=== PATIENT | female | born 1970 | race African-American/Black ===

== ENCOUNTER 2023-01-24 10:12 | Inpatient (IN) | payer OTHER ==
[~2023-01-24] VITALS: Ht 167.6 cm; Wt 62.8 kg
[2023-01-24] VITALS (21 sets, daily range): BP systolic 85–148; BP diastolic 51–120; PULSE 76–121; RESP 3–40; TEMP 98.4–98.5; O2SAT 90–100
[2023-01-24] MEDS ORDERED: SODIUM CHLORIDE 0.9% 1000ML 1,000 ML IV STA (10:37)
[2023-01-24] MEDS ORDERED: METHYLPREDNISOLONE SOD SUCC 125 MG/2ML VIAL IV STA (10:37)
[2023-01-24] MEDS ORDERED: ALBUTEROL/IPRATROPIUM 3 ML NEB NEB ONE (10:45)
[2023-01-24 12:19] LABS: BASOPHILS % 0.4 % (0.0-1.0); EOSINOPHILS # (AUTO) 0.2 (0.0-0.4); HEMATOCRIT 27.3 % (34.2-44.1); HEMOGLOBIN 8.3 g/dL (12.0-16.0); LYMPHOCYTES # (AUTO) 0.8 (1.0-3.2); LYMPHOCYTES % 10.2 % (18.0-39.1); MEAN CORPUSCULAR HEMOGLOBIN 29.3 pg (28-32); MEAN CORPUSCULAR HGB CONC 30.4 g/dL (31-35); MEAN CORPUSCULAR VOLUME 96.5 fL (81-99); MONOCYTES # (AUTO) 0.6 (0.2-0.8); NEUTROPHILS # (AUTO) 6.5 (2.1-6.9); PLATELET COUNT 194 x10e3/uL (140-360); RED BLOOD COUNT 2.83 x10e6/uL (3.6-5.1); RED CELL DISTRIBUTION WIDTH 16.9 % (11.7-14.4)
[2023-01-24 12:28] LABS: INR 1.98; PARTIAL THROMBOPLASTIN TIME 44.6 seconds (23.8-35.5)
[2023-01-24 12:38] LABS: ALBUMIN/GLOBULIN RATIO 0.6 (0.8-2.0); ANION GAP 11.8 mmol/L (8-16); CALCIUM 8.6 mg/dL (8.4-10.2); CREATININE, SERUM 1.07 mg/dL (0.57-1.11); MAGNESIUM 1.6 MG/DL (1.3-2.1); POTASSIUM 4.8 mmol/L (3.5-5.1)
[2023-01-24] MEDS ORDERED: FUROSEMIDE INJ 10 MG/ML 4 ML VIAL IV STA (12:42)
[2023-01-24] MEDS ORDERED: ACETAMINOPHEN 325 MG TAB PO PRN (13:00)
[2023-01-24] MEDS ORDERED: ONDANSETRON HCL INJ 2MG/ML 2ML 2 MG/ML VIAL IV PRN (13:00)
[2023-01-24] MEDS ORDERED: HYDRALAZINE HCL 20 MG/ML VIAL IV PRN (13:00)
[2023-01-24] MEDS ORDERED: ONDANSETRON HCL INJ 2MG/ML 2ML 2 MG/ML VIAL ONE (13:29)
[2023-01-24] MEDS ORDERED: LABETALOL HCL 5 MG/ML 20ML VIAL IV PRN (13:45)
[2023-01-24 13:48] LABS: CLARITY,URINE CLEAR (CLEAR); COLOR,URINE YELLOW (YELLOW)
[2023-01-24 13:49] LABS: KETONES,URINE NEGATIVE (NEGATIVE); LEUKOCYTE ESTERASE ,URINE NEGATIVE (NEGATIVE); NITRITE,URINE NEGATIVE (NEGATIVE); PROTEIN,URINE DIPSTICK 1+ (NEGATIVE); URINE UROBILINOGEN 0.2 mg/dL (0.2 - 1)
[2023-01-24 13:51] LABS: AMPHETAMINES SCREEN,URINE NEGATIVE (NEGATIVE); BENZODIAZEPINES SCREEN,URINE NEGATIVE (NEGATIVE); PHENCYCLIDINE SCREEN,URINE NEGATIVE (NEGATIVE)
[2023-01-24 13:55] LABS: BACTERIA,URINE FEW /HPF; EPITHELIAL CELLS,URINE FEW /LPF; RBC,URINE 0-5 /HPF (0-5); WBC,URINE (MAN) 0-5 /HPF (0-5)
[2023-01-24] MEDS ORDERED: ZOLOFT50 MG PO (15:17)
[2023-01-24] MEDS ORDERED: COREG6.25 MG PO (15:17)
[2023-01-24] MEDS ORDERED: LIPITOR20 MG PO (15:17)
[2023-01-24] MEDS ORDERED: LOSARTAN POTAS100 MG PO (15:17)
[2023-01-24] MEDS ORDERED: COMBIVENT RESPIM4 GM IH (15:17)
[2023-01-24] MEDS ORDERED: ASPIRIN81 MG PO (15:17)
[2023-01-24] MEDS ORDERED: XARELTO20 MG PO (15:17)
[2023-01-24] MEDS ORDERED: MULTI-VITAMIN1 EACH PO (15:17)
[2023-01-24] MEDS ORDERED: FUROSEMIDE INJ 10 MG/ML 4 ML VIAL IV ONE (19:00)
[2023-01-25] VITALS (30 sets, daily range): BP systolic 115–151; BP diastolic 20–97; PULSE 77–98; RESP 18–33; TEMP 97.8–98.8; O2SAT 94–100
[2023-01-25 07:06] LABS: BASOPHILS % 0.1 % (0.0-1.0); EOSINOPHILS % 0.1 % (0.0-6.0); HEMATOCRIT 25.9 % (34.2-44.1); HEMOGLOBIN 8.1 g/dL (12.0-16.0); LYMPHOCYTES # (AUTO) 0.9 (1.0-3.2); LYMPHOCYTES % 12.2 % (18.0-39.1); MEAN CORPUSCULAR HEMOGLOBIN 29.9 pg (28-32); MEAN CORPUSCULAR HGB CONC 31.3 g/dL (31-35); MEAN CORPUSCULAR VOLUME 95.6 fL (81-99); MONOCYTES # (AUTO) 0.7 (0.2-0.8); MONOCYTES % 10.1 % (4.4-11.3); NEUTROPHILS # (AUTO) 5.7 (2.1-6.9); NEUTROPHILS % 77.2 % (38.7-80.0); PLATELET COUNT 180 x10e3/uL (140-360); RED BLOOD COUNT 2.71 x10e6/uL (3.6-5.1); RED CELL DISTRIBUTION WIDTH 16.8 % (11.7-14.4)
[2023-01-25 07:22] LABS: ALBUMIN 2.6 g/dL (3.5-5.0); ALBUMIN/GLOBULIN RATIO 0.5 (0.8-2.0); ANION GAP 11.7 mmol/L (8-16); CALCIUM 8.4 mg/dL (8.4-10.2); CREATININE, SERUM 1.33 mg/dL (0.57-1.11); POTASSIUM 4.7 mmol/L (3.5-5.1)
[2023-01-25] MEDS ORDERED: ALBUMIN 25% 25GM 100ML 0.25 GM/ML BTL IV ONE (08:30)
[2023-01-25] MEDS ORDERED: FUROSEMIDE INJ 10 MG/ML 4 ML VIAL IV SCH ×2 (09:00→14:00)
[2023-01-25] MEDS: VALSARTAN 160 MG TAB PO SCH (09:40)
[2023-01-25 09:45] LABS: ABG HCO3 25 mmol/L (22-26); ABG PCO2 48 mmHg (35-45); ABG PH 7.33 (7.35-7.45); ABG PO2 161 mmHg (80-105); ABG TCO2 27
[2023-01-25] MEDS ORDERED: SODIUM CHLORIDE 0.9% 250ML 250 ML ONE (10:12)
[2023-01-25] MEDS: FUROSEMIDE INJ 100 MG in SODIUM CHLORIDE 0.9% 90 ML IV SCH ×2 (10:58→23:23)
[2023-01-25] MEDS ORDERED: VALSARTAN 160 MG TAB PO SCH (13:15)
[2023-01-25] MEDS: LORATADINE 10 MG TAB PO SCH (15:16)
[2023-01-25] MEDS: BENZONATATE 100 MG CAP PO PRN ×2 (16:34→22:03)
[2023-01-25] MEDS: MUPIROCIN 2% OINT 22 GM TUBE TOP SCH (21:00)
[2023-01-26] VITALS (33 sets, daily range): BP systolic 102–153; BP diastolic 61–125; PULSE 88–159; RESP 19–29; TEMP 97.7–98.8; O2SAT 89–100
[2023-01-26] MEDS: ZOLPIDEM TARTRATE 5 MG TAB PO PRN (00:16)
[2023-01-26 06:53] LABS: BASOPHILS % 0.7 % (0.0-1.0); EOSINOPHILS # (AUTO) 0.1 (0.0-0.4); EOSINOPHILS % 2.2 % (0.0-6.0); HEMATOCRIT 24.8 % (34.2-44.1); HEMOGLOBIN 7.7 g/dL (12.0-16.0); LYMPHOCYTES # (AUTO) 0.8 (1.0-3.2); LYMPHOCYTES % 13.5 % (18.0-39.1); MEAN CORPUSCULAR HEMOGLOBIN 29.4 pg (28-32); MEAN CORPUSCULAR VOLUME 94.7 fL (81-99); MONOCYTES # (AUTO) 0.4 (0.2-0.8); MONOCYTES % 6.9 % (4.4-11.3); NEUTROPHILS # (AUTO) 4.5 (2.1-6.9); NEUTROPHILS % 76.4 % (38.7-80.0); PLATELET COUNT 179 x10e3/uL (140-360); RED BLOOD COUNT 2.62 x10e6/uL (3.6-5.1); RED CELL DISTRIBUTION WIDTH 16.9 % (11.7-14.4)
[2023-01-26 07:22] LABS: ALBUMIN 2.8 g/dL (3.5-5.0); ALBUMIN/GLOBULIN RATIO 0.6 (0.8-2.0); ANION GAP 12.2 mmol/L (8-16); CALCIUM 8.3 mg/dL (8.4-10.2); CREATININE, SERUM 1.4 mg/dL (0.57-1.11); POTASSIUM 4.2 mmol/L (3.5-5.1)
[2023-01-26 07:44] LABS: % IRON SATURATION 10 % (15-50); IRON 31 ug/dL (50-170); TOTAL IRON BINDING CAPACITY 318 ug/dL (261-478); TRANSFERRIN 227 mg/dL (180-382)
[2023-01-26] MEDS: LORATADINE 10 MG TAB PO SCH (08:34)
[2023-01-26] MEDS: VALSARTAN 160 MG TAB PO SCH (08:35)
[2023-01-26] MEDS: MUPIROCIN 2% OINT 22 GM TUBE TOP SCH ×2 (08:48→20:29)
[2023-01-26] MEDS: SERTRALINE HCL 50 MG TAB PO SCH (14:32)
[2023-01-26] MEDS: BENZONATATE 100 MG CAP PO PRN (17:29)
[2023-01-26] MEDS: FUROSEMIDE INJ 10 MG/ML 4 ML VIAL IV SCH (20:29)
[2023-01-26] MEDS ORDERED: METOPROLOL TARTRATE INJ 1 MG/ML VIAL IV ONE (21:45)
[2023-01-26] MEDS ORDERED: AMIODARONE 900MG 900 MG in Premix Bag 1 BAG IV SCH (22:00)
[2023-01-26] MEDS ORDERED: AMIODARONE HCL 150 MG/100 ML BAG IV ONE (22:00)
[2023-01-26] MEDS ORDERED: AMIODARONE 900MG 500 ML IV ONE (22:33)
[2023-01-27] VITALS (40 sets, daily range): BP systolic 94–145; BP diastolic 58–133; PULSE 74–151; RESP 16–30; TEMP 97.3–98.6; O2SAT 93–100
[2023-01-27] MEDS: ZOLPIDEM TARTRATE 5 MG TAB PO PRN ×2 (00:11→20:44)
[2023-01-27] MEDS: BENZONATATE 100 MG CAP PO PRN ×3 (02:58→14:39)
[2023-01-27 06:47] LABS: BASOPHILS % 0.5 % (0.0-1.0); EOSINOPHILS # (AUTO) 0.2 (0.0-0.4); EOSINOPHILS % 3.7 % (0.0-6.0); HEMATOCRIT 26.9 % (34.2-44.1); HEMOGLOBIN 8.3 g/dL (12.0-16.0); LYMPHOCYTES # (AUTO) 1.3 (1.0-3.2); LYMPHOCYTES % 21.4 % (18.0-39.1); MEAN CORPUSCULAR HGB CONC 30.9 g/dL (31-35); MEAN CORPUSCULAR VOLUME 94.1 fL (81-99); MONOCYTES # (AUTO) 0.5 (0.2-0.8); NEUTROPHILS % 66.1 % (38.7-80.0); PLATELET COUNT 188 x10e3/uL (140-360); RED BLOOD COUNT 2.86 x10e6/uL (3.6-5.1); RED CELL DISTRIBUTION WIDTH 16.7 % (11.7-14.4)
[2023-01-27 07:12] LABS: ALBUMIN 2.7 g/dL (3.5-5.0); ALBUMIN/GLOBULIN RATIO 0.6 (0.8-2.0); ANION GAP 11.3 mmol/L (8-16); CALCIUM 8.5 mg/dL (8.4-10.2); CREATININE, SERUM 1.39 mg/dL (0.57-1.11); POTASSIUM 4.3 mmol/L (3.5-5.1)
[2023-01-27] MEDS: SERTRALINE HCL 50 MG TAB PO SCH (08:37)
[2023-01-27] MEDS: VALSARTAN 160 MG TAB PO SCH (08:38)
[2023-01-27] MEDS: FUROSEMIDE INJ 10 MG/ML 4 ML VIAL IV SCH (08:38)
[2023-01-27] MEDS: MUPIROCIN 2% OINT 22 GM TUBE TOP SCH ×2 (08:38→20:45)
[2023-01-27] MEDS: LORATADINE 10 MG TAB PO SCH (08:38)
[2023-01-27] MEDS: AMIODARONE HCL 200 MG TAB PO SCH ×2 (12:52→16:30)
[2023-01-27] MEDS ORDERED: MAGNESIUM SULFATE 2GM/50ML 50 ML IV ONE (16:00)
[2023-01-27] MEDS: FUROSEMIDE 40 MG TAB PO SCH (17:02)
[2023-01-28] VITALS (9 sets, daily range): BP systolic 118–144; BP diastolic 69–90; PULSE 74–91; RESP 18–20; TEMP 97.5–98; O2SAT 99–100
[2023-01-28] MEDS: FUROSEMIDE 40 MG TAB PO SCH (05:06)
[2023-01-28 06:00] LABS: BASOPHILS % 0.3 % (0.0-1.0); EOSINOPHILS # (AUTO) 0.2 (0.0-0.4); EOSINOPHILS % 2.6 % (0.0-6.0); HEMATOCRIT 29.1 % (34.2-44.1); HEMOGLOBIN 8.9 g/dL (12.0-16.0); LYMPHOCYTES # (AUTO) 1.4 (1.0-3.2); LYMPHOCYTES % 24.7 % (18.0-39.1); MEAN CORPUSCULAR HEMOGLOBIN 29.4 pg (28-32); MEAN CORPUSCULAR HGB CONC 30.6 g/dL (31-35); MONOCYTES # (AUTO) 0.3 (0.2-0.8); MONOCYTES % 5.6 % (4.4-11.3); NEUTROPHILS # (AUTO) 3.8 (2.1-6.9); NEUTROPHILS % 66.5 % (38.7-80.0); PLATELET COUNT 176 x10e3/uL (140-360); RED BLOOD COUNT 3.03 x10e6/uL (3.6-5.1); RED CELL DISTRIBUTION WIDTH 16.4 % (11.7-14.4)
[2023-01-28 06:18] LABS: ALBUMIN 2.9 g/dL (3.5-5.0); ALBUMIN/GLOBULIN RATIO 0.6 (0.8-2.0); ANION GAP 10.1 mmol/L (8-16); CALCIUM 8.5 mg/dL (8.4-10.2); CREATININE, SERUM 1.17 mg/dL (0.57-1.11); POTASSIUM 4.1 mmol/L (3.5-5.1)
[2023-01-28] MEDS ORDERED: SODIUM CHLORIDE 0.9% 250ML 250 ML ONE (08:53)
[2023-01-28] MEDS: MUPIROCIN 2% OINT 22 GM TUBE TOP SCH (08:55)
[2023-01-28] MEDS: LORATADINE 10 MG TAB PO SCH (08:55)
[2023-01-28] MEDS: VALSARTAN 160 MG TAB PO SCH (08:55)
[2023-01-28] MEDS: AMIODARONE HCL 200 MG TAB PO SCH (08:55)
[2023-01-28] MEDS: SERTRALINE HCL 50 MG TAB PO SCH (08:55)
[2023-01-28] MEDS ORDERED: AZITHROMYCIN 250 MG TAB PO SCH (09:00)
[2023-01-28] MEDS ORDERED: ONDANSETRON HCL 4 MG ORAL DISINTEGRATING TAB PO PRN (09:15)
[2023-01-28] MEDS ORDERED: MUPIROCIN22 GM TOP (10:17)
[2023-01-28] MEDS ORDERED: AMIODARONE HCL200 MG PO (10:17)
[2023-01-28] MEDS ORDERED: AZITHROMYCIN250 MG PO (10:17)
[2023-01-28] MEDS ORDERED: FUROSEMIDE40 MG PO (10:17)
[2023-01-28] MEDS ORDERED: BENZONATATE100 MG PO (10:17)
[2023-01-28] MEDS ORDERED: DIOVAN160 MG PO (10:17)
[2023-01-28] MEDS ORDERED: CEFUROXIME250 MG PO (10:17)
[2023-01-28] MEDS ORDERED: ACETAMINOPHEN325 M1 PO (10:17)
[2023-01-28] MEDS ORDERED: LORATADINE10 MG PO (10:17)
[2023-01-28] MEDS ORDERED: ONDANSETRON ODT4 MG PO (10:17)
== END 2023-01-28 15:33 | disposition home or self-care (01) | DRG 291 ==
LOC: ER 10:20 → ERHOLD 12:26 → ICU 15:03 → MED/SURG 01-27 18:44
PROVIDERS: ADMIT Internal Medicine; ATTEND Internal Medicine
PROC: 5A09457 Assistance with Respiratory Ventilation, 24-96 Consecutive Hours, Continuous Positive Airway Pressure (ICD-10-PCS; principal; 2023-01-24)
DX: I13.0 Hypertensive heart and chronic kidney disease with heart failure and stage 1 through stage 4 chronic kidney disease, or unspecified chronic kidney disease (principal); I50.23 Acute on chronic systolic (congestive) heart failure; J96.01 Acute respiratory failure with hypoxia; N18.2 Chronic kidney disease, stage 2 (mild); I48.0 Paroxysmal atrial fibrillation; Z72.0 Tobacco use; F14.11 Cocaine abuse, in remission; J44.9 Chronic obstructive pulmonary disease, unspecified; M54.9 Dorsalgia, unspecified; I42.7 Cardiomyopathy due to drug and external agent; R00.0 Tachycardia, unspecified; D50.9 Iron deficiency anemia, unspecified; F79 Unspecified intellectual disabilities
CPT/HCPCS: 36415; 36569; 36600; 71045; 80053; 80307; 81001; 82270; 82550; 82553; 82805; 83540; 83605; 83735; 83880; 84466; 84484; 85025; 85379; 85610; 85730; 87040; 87086; 93005; 93306; 94660; 94799; 99252; 99285; J0696; J1940; J2405; J2930; J3475; J7050; P9047